=== PATIENT | female | born 1960 ===

== ENCOUNTER → 2024-12-31 | Outpatient (CLI) | payer OTHER ==
[2025-01-06 08:30] LABS: HPV HIGH RISK BY TMA Not Detected; HPV SOURCE Cervical/Vag
== END | disposition home or self-care (01) ==
LOC: LAB SHORT 11:10 → LAB 11:10
PROVIDERS: Family Medicine
DX: Z01.419 Encounter for gynecological examination (general) (routine) without abnormal findings (principal)
CPT/HCPCS: 87624; G0123